=== PATIENT | male | born 1945 | race Caucasian/White ===

== ENCOUNTER 2018-02-16 01:29 | Emergency (ER) | payer SELFPAY ==
[~2018-02-16] VITALS: Ht 177.8 cm; Wt 100.1 kg
[2018-02-16 01:37] VITALS: Ht 177.8 cm; Wt 100.1 kg
== END 2018-02-16 02:45 | disposition left against medical advice (07) ==
LOC: E/R 01:29
DX: Z53.21 Procedure and treatment not carried out due to patient leaving prior to being seen by health care provider (principal)